=== PATIENT | male | born 1960 | race Caucasian/White ===

== ENCOUNTER 2016-09-03 14:45 | Emergency (ER) | payer OTHER ==
[~2016-09-03] VITALS: Ht 167.6 cm; Wt 60.0 kg
[~2016-09-03 14:45] MED LIST: ALBU18HF INHALATION; ALBU8.5H3 INH; ALPR2TAB PO; BENA20TA48 PO; BUDE6HFA INHALATION; HYDR-3011 PO; HYDR-3498 PO; LEVO75TA5 PO; LORA-441 PO; MECL-77 PO; OMEP20CA16 PO; PHEN200C PO; PRED20TA PO; TEMA30CA PO
[2016-09-03 14:55] VITALS: Ht 167.6 cm; Wt 60.0 kg
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
[2016-09-03 18:20] VITALS: BP 125/67; PULSE 76; RESP 19; TEMP 98.6
== END 2016-09-03 18:23 | disposition home or self-care (01) ==
LOC: E/R 14:45
DX: S89.91XA Unspecified injury of right lower leg, initial encounter (principal); R40.2252 Coma scale, best verbal response, oriented, at arrival to emergency department; I10 Essential (primary) hypertension; J45.909 Unspecified asthma, uncomplicated; J44.9 Chronic obstructive pulmonary disease, unspecified; F17.210 Nicotine dependence, cigarettes, uncomplicated; X58.XXXA Exposure to other specified factors, initial encounter; Y92.9 Unspecified place or not applicable
CPT/HCPCS: 99282

== ENCOUNTER 2016-09-04 09:23 | Emergency (ER) | payer OTHER ==
[~2016-09-04] VITALS: Wt 66.0 kg
[~2016-09-04 09:23] MED LIST changes: -ALBU18HF INHALATION; -ALBU8.5H3 INH
[2016-09-04 10:24] LABS: BASOPHIL # 0.1 10^3/ul (0.0-0.1); BASOPHILS % 0.3 % (0.0-2.0); CONDITION 1; EOSINOPHILS % 0.1 % (0.0-7.0); HEMATOCRIT 36.7 % (42.0-52.0); HEMOGLOBIN 12.5 g/dl (14.0-18.0); LH ANALYZER COMMENTS 1; LYMPHOCYTES # 0.9 10^3/ul (0.8-2.9); LYMPHOCYTES % 4.7 % (15.0-51.0); MEAN CORPUSCULAR HEMOGLOBIN 33.2 pg (29.0-33.0); MEAN CORPUSCULAR HGB CONC 33.9 g/dl (32.0-37.0); MEAN CORPUSCULAR VOLUME 97.7 fl (82.0-101.0); MEAN PLATELET VOLUME 7.4 fl (7.4-10.4); MONOCYTE # 1.1 10^3/ul (0.3-0.9); MONOCYTES % 5.4 % (0.0-11.0); NEUTROPHIL # 17.3 10^3/ul (1.6-7.5); NEUTROPHILS % 89.5 % (39.0-77.0); PLATELET COUNT 354 10^3/UL (140-440); RED BLOOD COUNT 3.76 10^6/ul (4.70-6.10); RED CELL DISTRIBUTION WIDTH 18.6 % (11.5-14.5); SUSPECT 1; UNCORRECTED WBC 19.3 10^3/ul (4.8-10.8); WHITE BLOOD COUNT 19.3 10^3/ul (4.8-10.8)
[2016-09-04 10:29] LABS: ALBUMIN 4.1 g/dl (3.3-4.9); CHLORIDE 107 mmol/L (97-110); SODIUM 146 mmol/L (135-144)
[2016-09-04] MEDS ORDERED: LORAZEPAM 2 MG INJ IM ONE (10:30)
[2016-09-04 10:32] LABS: ALANINE AMINOTRANSFERASE 65 IU/L (13-69); ALBUMIN/GLOBULIN RATIO 1.36; ALKALINE PHOSPHATASE 141 IU/L (42-121); ANION GAP 29 (8-16); ASPARTATE AMINO TRANSFERASE 235 IU/L (15-46); BILIRUBIN,INDIRECT 0.2 mg/dl (0-1.1); BILIRUBIN,TOTAL 0.2 mg/dl (0.2-1.3); BLOOD UREA NITROGEN 46 mg/dl (7-20); CARBON DIOXIDE 14 mmol/L (21-31); CREATININE 1.55 mg/dl (0.61-1.24); GLUCOSE 76 mg/dl (70-220); TOTAL PROTEIN 7.1 g/dl (6.1-8.1)
[2016-09-04 10:33] LABS: CALCIUM 8.8 mg/dl (8.4-10.2)
[2016-09-04 10:35] LABS: ETHANOL < 10.0 mg/dl
[2016-09-04 11:14] LABS: PLATELET ESTIMATE PLT APPEAR ADEQUATE
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
--- NOTE | 2016-09-04 11:50 | RADRPT ---
PROCEDURE: CT head CLINICAL INDICATION: Altered mental status. TECHNIQUE: Contiguous 2.5 mm axial images were obtained from the vertex to the skull base. No int ravenous contrast was administered. The calculated dose length product (DLP) = 810.25 mGy-cm. The CTDlvol = 45.01 mGy COMPARISON: 02/18/2016 FINDINGS: There is no acute intracranial hemorrhage or acute territorial infarct. No mass or mass effect is s een on this noncontrast study. Ventricles and cisterns are normal in size and configuration. [place]- white matter differentiation is within normal limits. Visualized paranasal sinuses are normally aer ated. The bony calvarium is unremarkable. There is right parietal scalp hematoma and soft tissue s welling. IMPRESSION: 1. No acute intracranial hemorrhage or acute territorial infarct. 2. Right high parietal scalp hematoma and soft tissue swelling RPTAT: HH .Chris Uriarte MD, MD Date Time Electronically viewed and signed by .Chris Uriarte MD, on 09/04/2016 11:50 .W/
--- NOTE | 2016-09-04 12:45 | RADRPT ---
PROCEDURE: XR Chest 1 View. CLINICAL INDICATION: Abnormal breath sounds, elevated white blood cells. TECHNIQUE: AP view of the chest were obtained. COMPARISON: February 18, 2016 FINDINGS: The heart size is within normal limits. Calcified atherosclerosis is noted in the aorta. Elevation right hemidiaphragm is noted. No consolidations are identified. No pneumothorax is seen. Osseous s tructures are intact. IMPRESSION: Calcified atherosclerosis in the aorta. Chronic elevation right hemidiaphragm. Clear lungs. RPTAT: AA .Dave Wallis MD, MD Date Time Electronically viewed and signed by .Dave Wallis MD, MD on 09/04/2016 12:45 .P/
[2016-09-04] MEDS ORDERED: SOD CHLORIDE 0.9% 1,000 ML IV STA (12:59)
[2016-09-04 13:27] LABS: ADD UMIC YES; URINE BILIRUBIN (Dip) 1+ (NEGATIVE); URINE BLOOD (Dip) 1+ (NEGATIVE); URINE COLOR LT. YELLOW (YELLOW); URINE GLUCOSE (Dip) NEGATIVE (NEGATIVE); URINE KETONES (Dip) 15 (NEGATIVE); URINE LEUKOCYTE ESTERASE (Dip) NEGATIVE (NEGATIVE); URINE NITRITE (Dip) NEGATIVE (NEGATIVE); URINE TOTAL PROTEIN (Dip) NEGATIVE (NEGATIVE); URINE UROBILINOGEN (Dip) 0.2 E.U./dL (0.1-1.0)
[2016-09-04 13:45] LABS: ICTOTEST NEGATIVE (NEGATIVE)
[2016-09-04 13:46] LABS: URINE RBCS 0-2 /HPF (0)
[2016-09-04 14:00] LABS: BARBITURATES NEGATIVE (NEGATIVE); BENZODIAZEPINES NEGATIVE (NEGATIVE); CANNABINOIDS NEGATIVE (NEGATIVE); COCAINE NEGATIVE (NEGATIVE); OPIATES NEGATIVE (NEGATIVE)
--- NOTE | 2016-09-04 16:42 | RADRPT ---
PROCEDURE: CT Abdomen and Pelvis without contrast. CLINICAL INDICATION: Abdominal and pelvic pain. TECHNIQUE: CT scan of the abdomen and pelvis without contrast was performed. Coronal and sagittal reformatted images were obtained from the axial source images. Images were reviewed on a high-resolu [employer] PACS workstation. Total exam DLP is 922.62 mGy-cm. CTDIvol is 18.37 mGy. One or more of the f ollowing dose reduction techniques were used: Automated exposure control, adjustment of the mA and/o r kV according to patient size, use of iterative reconstruction technique. COMPARISON: None. FINDINGS: This is a limited study due to patient inability to cooperate. The patient refused to remove extran eous foreign bodies and refused to extend his arms above his head. The lung bases are grossly normal. The heart size is normal. The liver is normal in size and attenuation. There is no focal hepatic lesion. The gallbladder and bile ducts are normal. The spleen is normal in size. There is no focal splenic lesion. Both adrenals are normal with no enlargement or mass. The pancreas is unremarkable with no mass or evidence of pancreatitis. There is no renal mass or hydronephrosis. There is no renal calculus or ureteral calculus. The abdominal aorta is not dilated. There is calcification in the aorta consistent with atheroscler osis. There is no retroperitoneal lymphadenopathy or mass. There is no pelvic lymphadenopathy or mass. The bladder and distal ureters are normal. The periappendiceal region is unremarkable with no evidence of appendicitis. The bowel and mesentery are normal. There is no free fluid or free gas. There has been open reduction and internal fixation of the left hip with a healed intertrochanteric fracture. There is a nonunited chronic comminuted fracture of the right superior and inferior pubic rami. There is no acute fracture or lytic lesion. There are degenerative changes of the spine. IMPRESSION: 1. Limited study. 2. Atherosclerosis. 3. Prior open reduction and internal fixation of the left hip. 4. Nonunited chronic comminuted fracture of the right superior and inferior pubic rami. 5. Otherwise unremarkable study. RPTAT: QQ .Quinn Weston MD, MD Date Time Electronically viewed and signed by .Quinn Weston MD, on 09/04/2016 16:42 .R/
[2016-09-04 16:59] VITALS: TEMP 98
[2016-09-04 17:25] VITALS: BP 118/68; PULSE 77; RESP 18
== END 2016-09-04 17:55 | disposition short-term general hospital (02) ==
LOC: E/R 09:23
DX: N17.9 Acute kidney failure, unspecified (principal); D72.829 Elevated white blood cell count, unspecified; E86.0 Dehydration; I10 Essential (primary) hypertension; J44.9 Chronic obstructive pulmonary disease, unspecified; F17.210 Nicotine dependence, cigarettes, uncomplicated; R41.82 Altered mental status, unspecified
CPT/HCPCS: 70450; 71010; 74176; 80053; 80303; 80320; 81001; 85025; 87040; 87400; J2060; J7030; 36415; 81003; 96372; G0478; G0479